=== PATIENT | male | born 1985 | race Caucasian/White ===

== ENCOUNTER 2024-04-16 18:25 | Emergency (ER) | payer OTHER, SELFPAY ==
[2024-04-16] VITALS (7 sets, daily range): BP systolic 147–209; BP diastolic 95–118; BMI 34.4
[2024-04-16 18:52] LABS: % Basophils 0.7 % (0-2); % Eosinophils 2.5 % (0-6); % Immature Granulocytes 1.6 % (0-0.5); % Lymphocytes 28.9 % (20.5-51.1); % Monocytes 6.5 % (1.7-9.3); % Neutrophils 59.8 % (42.2-75.2); Absolute Basophils 0.1 10^3/uL (0-0.2); Absolute Eosinophils 0.2 10^3/uL (0-0.7); Absolute Immature Granulocytes 0.2 10^3/uL (0-0.05); Absolute Lymphocytes 2.6 10^3/uL (1.2-3.4); Absolute Monocytes 0.6 10^3/uL (0.1-0.6); Absolute Neutrophils 5.4 10^3/uL (1.4-6.5); Hematocrit 44.8 % (39.0-52.0); Hemoglobin 15.7 g/dL (13.0-18.0); Mean Corpuscular Hgb 29.5 pg (27.0-31.0); Mean Corpuscular Volume 84.2 fL (80.0-94.0); Nucleated Red Blood Cells % 0 % (-); Platelet Count 235 10^3/uL (130-400); Red Blood Cell Count 5.32 10^6/uL (4.70-6.10); Red Cell Dist. Width 11.9 % (11.5-14.5); White Blood Cell Count 9.1 10^3/uL (4.8-10.8)
[2024-04-16 19:07] LABS: ALT (SGPT) 99 U/L (0-50); AST (SGOT) 51 U/L (17-59); Albumin 5.1 g/dl (3.5-5.0); Alkaline Phosphatase 89 U/L (38-126); Blood Urea Nitrogen 12 mg/dl (9-20); Calcium 10.1 mg/dl (8.4-10.2); Carbon Dioxide 25 mmol/L (22-30); Chloride 101 mmol/L (98-107); Glucose 139 mg/dl (70-99); Potassium 3.5 mmol/L (3.5-5.1); Sodium 138 mmol/L (135-145); Total Bilirubin 0.8 mg/dl (0.2-1.3); Total Protein 7.8 g/dl (6.3-8.2); eGFR > 60.00
[2024-04-16] MEDS: APRESOLINE 10 MG IV (21:19)
[2024-04-16 21:55] LABS: Troponin I < 0.012 ng/ml
--- NOTE | 2024-04-16 22:25 | EDRN ---
Updated patient on labs, aware waiting for Doctor to come in and go over CT results
--- NOTE | 2024-04-16 22:54 | ED.GENMED ---
History of Present Illness
General
Chief Complaint: Chest Pain
Source: patient and spouse
Exam Limitations: none
Time Seen by Provider: 04/16/24 20:57
Nursing documentation reviewed up to this point in time: agreed with
History of Present Illness
History of Present Illness:
38-year-old male presents emergency department due to headache and chest pain the last several days. He went to urgent care, who stated his blood pressure was high and they sent him to the emergency department. He stopped taking his lisinopril in
January.
Past History
Past History
ED Past Medical History: HTN
ED Past Surgical History: None
Social History
Tobacco: Non-smoker
Alcohol: Occasional
Drug: None
Personal:
Living: with family
Review of Systems
Review of Systems
Allergies reviewed?: Yes
All Other Systems: Not applicable
Constitutional: Reports no symptoms
EENT: Reports no symptoms
Respiratory: Reports no symptoms
Cardiac: Reports chest pain
ABD/GI: Reports no symptoms
: Reports no symptoms
Musculoskeletal: Reports no symptoms
Skin: Reports no symptoms
Neurological: Reports headache
Endocrine: Reports no symptoms
Hematologic/Lymphatic: Reports no symptoms
Psychiatric: Reports no symptoms
Phy Exam
Physical Exam
Physical Exam:
Physical Exam
General: no apparent distress, not acutely ill
Neck: supple. no meningeal signs. normal posterior pharynx
Heart: s1/s2 regular rate and rhythm, no murmur. equal radial
pulses.
HEENT: Pupils equal round reactive to light, EOMI
Lungs: no acute respiratory distress. clear bilaterally, left chest wall tenderness
Abdomen: normal bowel sounds. not tender. no CVAT
Neuro: alert and oriented. no focal neurological deficits cranial nerves II through XII intact
Skin: no rash
Psychiatric: well kept. interactive and cooperative
Extremities: no edema. no calf tenderness. negative homans. good distal pulses
Scores
Heart Score for Chest Pain Patients
STEMI patient?: No
History: Slightly or Non-Suspicious
ECG: Normal
Age: </= 45 years
Risk Factors: 1 or 2 Risk Factors
Troponin: </= Normal Limit
Heart Score for Chest Pain Patients: 1
Heart Score Risk: 2.5% MACE over next 6 weeks
Course
Orders/Labs/Results
Orders:
Orders
04/16/24 18:27
Electrocardiogram (*1) Urgent
Reason for Study: Chest Pain
EKG- Treatment ONCE
04/16/24 18:43
CMP [Comprehensive Metabolic Panel] Urgent
Complete Blood Count/With Diff Urgent
04/16/24 21:04
IV Insert/Care/Rem.- Treatment PRN
04/16/24 21:05
CT Head & Neck Angio W/wo IV Urgent
Comment:
Reason For Exam: headache, neck pain, chest pain
04/16/24 21:14
Troponin I Urgent
04/16/24 21:17
HydrALAZINE [Apresoline] 10 mg IV NOW STA
04/16/24 23:12
Amlodipine [Norvasc] 5 mg PO NOW STA
Abnormal Lab Results
04/16/24
18:43
Abs Immat Gran (auto) 0.2 H 10^3/uL
(0-0.05)
Immature Gran % 1.6 H %
(0-0.5)
Glucose 139 H mg/dl
(70-99)
ALT 99 H U/L
(0-50)
Albumin 5.1 H g/dl
(3.5-5.0)
04/16/24 18:43
04/16/24 18:43
Vital Signs
Initial and Last Documented VS:
Initial Vital Signs
Temp Pulse Resp BP Pulse Ox
98.0 F 73 16 209/118 98
04/16/24 18:35 04/16/24 18:35 04/16/24 18:35 04/16/24 18:35 04/16/24 18:35
Last Documented Vital Signs
Temp Pulse Resp BP Pulse Ox
98.0 F 80 15 164/104 97
04/16/24 18:35 04/16/24 23:19 04/16/24 23:00 04/16/24 23:19 04/16/24 23:00
MDM/Problems Addressed
Differential Diagnosis Includes:
ACS, aortic dissection, carotid dissection
MDM/Problems Addressed:
38-year-old male with chest pain, likely chest wall pain, headache. Elevated blood pressure. No signs of carotid dissection, doubt aortic section.
Chronic conditions affecting care: HTN
Acute Exacerbation and/or Progression of Chronic Illness: HTN
*Radiology
Radiology exam reviewed: radiology read reviewed (CT head and neck angiography no acute findings)
*Pulse Oximetry
Patient hypoxic: no
*EKG
Interpreted by ED Provider?: Yes
EKG Intrepretation Date: 04/16/24
EKG Intrepretation Time: 18:30
Interpretation: abnormal
Comparison EKG: no comparison EKG present
Heart Rate: 69
Rate: normal
Rhythm: sinus
[place]: normal axis
Interval: normal interval
QRS Pattern: normal QRS
Ischemia: non-specific ST changes
*Corrugated Fastener Driver Interpretation
Rate: normal
Interpretation: normal
Heart Rate: 69
Rhythm: sinus
*Critical Care Note
Total Time (30-74mins, 75-104mins- exclusive of procedures): 30
comment:
Critical care statement: A total of 30 minutes of critical care time was provided for this patient. This includes management of unstable vital signs, evaluation of the patient at bedside, reviewing the patient's pertinent medical records, discussion
with consultants, review of old EKGs and review of pertinent medical records. This time with separate from time utilized to perform the aforementioned documented procedures
Patient Management
Social determinants of health affecting care: Living situation and Strong social support
Escalation/DeEscalation of care consider admission/obs:
Admit not indicated
ED Attending Note
-
Portions of this chart may have been created with voice recognition software.� Occasional wrong word or��sound alike� substitutions may have occurred due to the inherent limitations of voice recognition software.
Discharge Plan
Departure
Patient Disposition: Home (Routine Discharge)
Date of Disposition: 04/16/24
Time of Disposition: 22:58
Patient with high blood pressure during this ER visit?: Yes
Condition: Good
Discharge Problem:
Hypertensive urgency, Chest wall pain
Instructions: High blood pressure in adults, Chest Pain PCP Follow Up, BLOOD PRESSURE
Prescriptions:
New
amlodipine 5 mg tablet
5 mg PO DAILY Qty: 30 0RF
Referrals:
Manuel Diallo MD [Family Provider] -
Interventions
Interventions:
*Risk Screen - Suicide Last Done: 04/16/24 18:35
*General Assessment Last Done: 04/16/24 21:14
*Neglect/Abuse Screening Last Done: 04/16/24 18:35
ED- Fall Risk Assessment Last Done: 04/16/24 22:28
*ED COVID-19 Vaccine History Last Done: 04/16/24 21:14
*Nursing Disposition Last Done: 04/16/24 23:40
ED- Cardiac Assessment Last Done: 04/16/24 22:28
Discharge Date and Time
Discharge Date/Time: 04/16/24 23:40
Print Language: POLISH
--- NOTE | 2024-04-16 23:12 | EDRN ---
Dr. Ingram in going over results and plan for discharge
[2024-04-16] MEDS: NORVASC 5 MG PO (23:19)
== END 2024-04-16 23:40 | disposition home or self-care (01) ==
LOC: EMR 18:25
PROVIDERS: Emergency Medicine; EMERGENCY PHYSICIAN Emergency Medicine; FAMILY PHYSICIAN Internal Medicine
DX: I16.0 Hypertensive urgency (principal); R07.89 Other chest pain
CPT/HCPCS: 99291; 96374; 70496; 70498; 80053; 84484; 85025; 93005; Q9967